=== PATIENT | male | born 1965 ===

== ENCOUNTER 2021-05-03 09:27 | Inpatient (IN) | payer OTHER ==
[~2021-05-03] VITALS: Ht 193 cm; Wt 121.0 kg
[2021-05-03] MEDS ORDERED: SODIUM CHLORIDE 0.9% 1,000 ML IV ONE (10:00)
[2021-05-03] MEDS: cefTRIAXone 1GM/50ML D5W 50 ML IV ONE ×2 (10:25→10:28)
[2021-05-03 11:02] LABS: Basophils # (auto) 0 10 ^3/uL (0-0.2); Basophils % (auto) 0.1 % (0.0-2.0); Eosinophils # (auto) 0 10 ^3/uL (0-0.8); Hematocrit 42.5 % (41.0-53.0); Hemoglobin 14.9 g/dL (13.5-17.5); Lymphocytes # (auto) 0.7 10 ^3/uL (0.4-5.4); Mean Corpuscular Hemoglobin 33.9 pg (28.0-32.0); Mean Corpuscular Hgb Conc. 35.2 g/dL (32.0-36.0); Mean Corpuscular Volume 96.4 fL (80.0-100.0); Monocytes # (auto) 0.9 10 ^3/uL (0-1.3); Monocytes % (auto) 7.8 % (0.0-12.0); Neutrophils # (auto) 10.3 10 ^3/uL (1.6-8.6); Neutrophils % (auto) 86.1 % (37.0-80.0); Nucleated Red Blood Cells % 0.1 %; Red Cell Distribution Width 12.9 % (11.8-14.3)
[2021-05-03 11:31] LABS: Albumin 2.9 g/dL (3.4-5.0); Calcium 8.5 mg/dL (8.5-10.1)
[2021-05-03 11:35] LABS: BUN/Creatinine Ratio 16.3; Bilirubin, Total 1.2 mg/dL (0.2-1.0); Total Protein 8.1 g/dL (6.4-8.2)
[2021-05-03 11:38] LABS: Potassium 2.9 mmol/L (3.5-5.1)
[2021-05-03] MEDS ORDERED: POTASSIUM EFFERVESENT TAB 25 MEQ PO ONE (12:15)
[2021-05-03 12:43] LABS: Urine WBC None Seen /hpf (0 - 3)
[2021-05-03 12:53] LABS: Urine Bacteria NONE SEEN /hpf (None Seen); Urine Blood 1+ /uL (Negative); Urine Hyaline Cast MANY /lpf (0 - 2); Urine Specific Gravity 1.021 (1.001-1.035)
[2021-05-03] MEDS ORDERED: ONDANSETRON HCL 4 MG/2 ML VIAL IV ONE (13:30)
[2021-05-03] MEDS ORDERED: MORPHINE SULFATE 4 MG/ML SYR/VIAL IV ONE (13:30)
[2021-05-03] MEDS ORDERED: IOHEXOL 350 MG/ML 100ML IJ ONE (13:43)
[2021-05-03] MEDS ORDERED: LABETALOL HCL 5 MG/ML 4ML SYRINGE IV ONE (13:45)
[2021-05-03] MEDS ORDERED: NITROGLYCERIN 0.4 MG SL TAB SL PRN (14:00)
[2021-05-03] MEDS ORDERED: SODIUM CHLORIDE 0.9% 1,000 ML IV SCH (14:00)
[2021-05-03] MEDS ORDERED: DOCUSATE SOD 100 MG CAP PO PRN (14:00)
[2021-05-03] MEDS ORDERED: HYDROcodone-ACET 5/325MG TAB PO PRN (14:00)
[2021-05-03] MEDS ORDERED: MORPHINE SULFATE INJECTION 2 MG/ML SYRG IV PRN (14:00)
[2021-05-03] MEDS ORDERED: VANCOMYCIN PER PHARMACY 0 MG IV SCH (14:00)
[2021-05-03] MEDS ORDERED: DEXTROSE (50%) 50ML SYRG IV ONE (14:15)
[2021-05-03] MEDS ORDERED: PIPERACILLIN-TAZOB 3.375GM 100 ML IV ONE (14:30)
[2021-05-03 14:50] LABS: Cholesterol 175 mg/dL (< 200); Triglycerides 206 mg/dL (< 150)
[2021-05-03 14:52] LABS: HDL Cholesterol 33 mg/dL (40-59); LDL Cholesterol 109 mg/dL (< 100)
[2021-05-03] MEDS: SODIUM CHLORIDE 0.9% 1,000 ML IV SCH (14:55)
[2021-05-03 16:00] VITALS: BP 161/106
[2021-05-03] MEDS: VANCOMYCIN 1GM/250ML 250 ML IV SCH (16:59)
[2021-05-03] MEDS ORDERED: InsuLIN REG 1unit/0.01ml Soln (100units/ml) SC ONE (17:00)
[2021-05-03] MEDS ORDERED: ACCU-CHEK COMFORT CURVE STRIP VI ONE (17:00)
[2021-05-03 17:20] VITALS: BP 154/103
[2021-05-03] MEDS: MORPHINE SULFATE INJECTION 2 MG/ML SYRG IV PRN (17:59)
[2021-05-03] MEDS: ONDANSETRON HCL 4 MG/2 ML VIAL IV PRN (17:59)
[2021-05-03 20:00] VITALS: BP 131/88
[2021-05-03] MEDS: cloNIDine HCL 0.1 MG TAB PO PRN (21:38)
[2021-05-03] MEDS: METOPROLOL TARTRATE 50 MG TAB PO SCH (21:38)
[2021-05-03 22:00] VITALS: BP 162/95
[2021-05-04] VITALS (7 sets, daily range): BP systolic 134–159; BP diastolic 88–99
[2021-05-04] MEDS: SODIUM CHLORIDE 0.9% 1,000 ML IV SCH ×3 (00:15→20:16)
[2021-05-04] MEDS: VANCOMYCIN 1GM/250ML 250 ML IV SCH ×2 (04:30→16:12)
[2021-05-04] MEDS: METOPROLOL TARTRATE 50 MG TAB PO SCH ×2 (08:57→22:18)
[2021-05-04 11:04] LABS: Basophils # (auto) 0 10 ^3/uL (0-0.2); Basophils % (auto) 0.2 % (0.0-2.0); Eosinophils # (auto) 0 10 ^3/uL (0-0.8); Eosinophils % (auto) 0.1 % (0.0-7.0); Hematocrit 39.5 % (41.0-53.0); Hemoglobin 13.6 g/dL (13.5-17.5); Lymphocytes % (auto) 9.2 % (10.0-50.0); Mean Corpuscular Hemoglobin 33.1 pg (28.0-32.0); Mean Corpuscular Hgb Conc. 34.4 g/dL (32.0-36.0); Mean Corpuscular Volume 96.2 fL (80.0-100.0); Monocytes # (auto) 1.4 10 ^3/uL (0-1.3); Monocytes % (auto) 12.2 % (0.0-12.0); Neutrophils # (auto) 8.9 10 ^3/uL (1.6-8.6); Neutrophils % (auto) 78.3 % (37.0-80.0); Nucleated Red Blood Cells % 0.1 %; Red Blood Cells 4.11 10^6/uL (4.5-5.90); Red Cell Distribution Width 13.2 % (11.8-14.3); White Blood Cell 11.4 10^3/uL (4.4-10.8)
[2021-05-04 11:11] LABS: Albumin 2.4 g/dL (3.4-5.0); Calcium 7.5 mg/dL (8.5-10.1); Potassium 3.4 mmol/L (3.5-5.1)
[2021-05-04 11:16] LABS: BUN/Creatinine Ratio 12.3; Bilirubin, Total 1.8 mg/dL (0.2-1.0); Total Protein 6.4 g/dL (6.4-8.2)
[2021-05-04] MEDS ORDERED: cefTRIAXone 1GM/50ML D5W 50 ML IV ONE (12:15)
[2021-05-04] MEDS: MORPHINE SULFATE INJECTION 2 MG/ML SYRG IV PRN (13:34)
[2021-05-04] MEDS: ONDANSETRON HCL 4 MG/2 ML VIAL IV PRN (13:34)
[2021-05-04] MEDS ORDERED: LEVOTHYROXINE SODIUM 100 MCG/5 ML INJ IV ONE (16:15)
[2021-05-04] MEDS: HYDROcodone-ACET 7.5/325MG TAB PO SCH (17:43)
[2021-05-04] MEDS: ATORVASTATIN 20 MG TAB PO SCH (22:02)
[2021-05-05] MEDS: HYDROcodone-ACET 7.5/325MG TAB PO SCH ×5 (01:15→23:46)
[2021-05-05] MEDS: VANCOMYCIN 1GM/250ML 250 ML IV SCH ×2 (04:00→16:30)
[2021-05-05 05:00] VITALS: BP 135/91
[2021-05-05] MEDS: LEVOTHYROXINE SODIUM 112 MCG TAB PO SCH (06:14)
[2021-05-05] MEDS: SODIUM CHLORIDE 0.9% 1,000 ML IV SCH ×3 (06:15→21:55)
[2021-05-05 06:53] LABS: Basophils # (auto) 0 10 ^3/uL (0-0.2); Basophils % (auto) 0.1 % (0.0-2.0); Eosinophils # (auto) 0 10 ^3/uL (0-0.8); Eosinophils % (auto) 0.3 % (0.0-7.0); Hematocrit 38.4 % (41.0-53.0); Hemoglobin 13.3 g/dL (13.5-17.5); Lymphocytes # (auto) 1.3 10 ^3/uL (0.4-5.4); Mean Corpuscular Hemoglobin 33.8 pg (28.0-32.0); Mean Corpuscular Hgb Conc. 34.7 g/dL (32.0-36.0); Mean Corpuscular Volume 97.4 fL (80.0-100.0); Monocytes % (auto) 9.2 % (0.0-12.0); Neutrophils # (auto) 8.2 10 ^3/uL (1.6-8.6); Neutrophils % (auto) 78.4 % (37.0-80.0); Red Blood Cells 3.94 10^6/uL (4.5-5.90); Red Cell Distribution Width 13.4 % (11.8-14.3); White Blood Cell 10.5 10^3/uL (4.4-10.8)
[2021-05-05 06:54] LABS: Potassium 3.6 mmol/L (3.5-5.1)
[2021-05-05 07:02] LABS: Albumin 2.3 g/dL (3.4-5.0); Bilirubin, Total 1.6 mg/dL (0.2-1.0); Calcium 7.5 mg/dL (8.5-10.1); Total Protein 6.2 g/dL (6.4-8.2)
[2021-05-05 09:00] VITALS: BP 125/86
[2021-05-05] MEDS: cefTRIAXone 1GM/50ML D5W 50 ML IV SCH (09:59)
[2021-05-05] MEDS: POTASSIUM EFFERVESENT TAB 25 MEQ PO SCH (09:59)
[2021-05-05] MEDS: METOPROLOL TARTRATE 50 MG TAB PO SCH ×2 (10:00→21:55)
[2021-05-05 13:00] VITALS: BP 145/87
[2021-05-05 17:00] VITALS: BP 144/83
[2021-05-05] MEDS: ATORVASTATIN 20 MG TAB PO SCH (21:48)
[2021-05-06] MEDS: VANCOMYCIN 1GM/250ML 250 ML IV SCH ×2 (04:44→17:26)
[2021-05-06] MEDS: HYDROcodone-ACET 7.5/325MG TAB PO SCH ×3 (05:40→17:27)
[2021-05-06] MEDS: LEVOTHYROXINE SODIUM 112 MCG TAB PO SCH (06:28)
[2021-05-06 08:00] VITALS: BP 136/78
[2021-05-06 08:30] VITALS: BP 136/78
[2021-05-06] MEDS: cefTRIAXone 1GM/50ML D5W 50 ML IV SCH (08:49)
[2021-05-06] MEDS: MORPHINE SULFATE INJECTION 2 MG/ML SYRG IV PRN (08:51)
[2021-05-06] MEDS: METOPROLOL TARTRATE 50 MG TAB PO SCH ×2 (10:24→21:54)
[2021-05-06] MEDS: POTASSIUM EFFERVESENT TAB 25 MEQ PO SCH (10:25)
[2021-05-06] MEDS: SODIUM CHLORIDE 0.9% 1,000 ML IV SCH ×2 (12:15→22:15)
[2021-05-06 13:30] VITALS: BP 149/94
[2021-05-06 15:30] VITALS: BP 141/91
[2021-05-06] MEDS: ATORVASTATIN 20 MG TAB PO SCH (21:53)
[2021-05-06 22:00] VITALS: BP 155/97
[2021-05-06] MEDS: LORazepam 0.5 MG TAB PO PRN (22:36)
[2021-05-07] MEDS: HYDROcodone-ACET 7.5/325MG TAB PO SCH ×4 (00:45→18:19)
[2021-05-07] MEDS: VANCOMYCIN 1GM/250ML 250 ML IV SCH ×2 (04:11→16:39)
[2021-05-07 05:20] VITALS: BP 144/94
[2021-05-07] MEDS: LEVOTHYROXINE SODIUM 112 MCG TAB PO SCH (06:31)
[2021-05-07] MEDS: SODIUM CHLORIDE 0.9% 1,000 ML IV SCH ×2 (06:34→21:44)
[2021-05-07 08:00] VITALS: BP 140/83
[2021-05-07 09:00] VITALS: BP 148/86
[2021-05-07 09:23] LABS: Basophils # (auto) 0 10 ^3/uL (0-0.2); Basophils % (auto) 0.2 % (0.0-2.0); Eosinophils # (auto) 0 10 ^3/uL (0-0.8); Eosinophils % (auto) 0.3 % (0.0-7.0); Hematocrit 40.4 % (41.0-53.0); Hemoglobin 13.8 g/dL (13.5-17.5); Lymphocytes # (auto) 1.4 10 ^3/uL (0.4-5.4); Mean Corpuscular Hemoglobin 32.9 pg (28.0-32.0); Mean Corpuscular Hgb Conc. 34.1 g/dL (32.0-36.0); Mean Corpuscular Volume 96.5 fL (80.0-100.0); Monocytes # (auto) 0.7 10 ^3/uL (0-1.3); Monocytes % (auto) 5.9 % (0.0-12.0); Neutrophils # (auto) 9.5 10 ^3/uL (1.6-8.6); Neutrophils % (auto) 81.6 % (37.0-80.0); Nucleated Red Blood Cells % 0.1 %; Red Blood Cells 4.19 10^6/uL (4.5-5.90); Red Cell Distribution Width 13.3 % (11.8-14.3); White Blood Cell 11.6 10^3/uL (4.4-10.8)
[2021-05-07 09:29] LABS: BUN/Creatinine Ratio 12.9; Potassium 3.5 mmol/L (3.5-5.1)
[2021-05-07] MEDS: POTASSIUM EFFERVESENT TAB 25 MEQ PO SCH (09:59)
[2021-05-07] MEDS: LORazepam 0.5 MG TAB PO PRN (09:59)
[2021-05-07] MEDS: cefTRIAXone 1GM/50ML D5W 50 ML IV SCH (09:59)
[2021-05-07] MEDS: METOPROLOL TARTRATE 50 MG TAB PO SCH ×2 (10:00→22:13)
[2021-05-07] MEDS: NEOMYCIN-BACITRACIN-POLYM UNITDOSE PKG TOP OINT TOP SCH (12:06)
[2021-05-07] MEDS ORDERED: hydrALAZINE HCL 25 MG TAB PO SCH (14:00)
[2021-05-07 16:30] VITALS: BP 140/89
[2021-05-07 22:00] VITALS: BP_SYST 142; BP_SYST 176; BP_DIAS 78; BP_DIAS 85
[2021-05-07] MEDS: ATORVASTATIN 20 MG TAB PO SCH (22:14)
[2021-05-08] MEDS: HYDROcodone-ACET 7.5/325MG TAB PO SCH ×4 (00:55→18:51)
[2021-05-08] MEDS: VANCOMYCIN 1GM/250ML 250 ML IV SCH ×2 (03:56→15:50)
[2021-05-08] MEDS: SODIUM CHLORIDE 0.9% 1,000 ML IV SCH ×2 (03:58→15:11)
[2021-05-08 05:00] VITALS: BP 140/93
[2021-05-08] MEDS: LEVOTHYROXINE SODIUM 112 MCG TAB PO SCH (06:16)
[2021-05-08 08:00] VITALS: BP 146/84
[2021-05-08] MEDS: cefTRIAXone 1GM/50ML D5W 50 ML IV SCH (09:27)
[2021-05-08] MEDS: POTASSIUM EFFERVESENT TAB 25 MEQ PO SCH (09:27)
[2021-05-08] MEDS: METOPROLOL TARTRATE 50 MG TAB PO SCH ×2 (09:27→22:00)
[2021-05-08] MEDS: NEOMYCIN-BACITRACIN-POLYM UNITDOSE PKG TOP OINT TOP SCH (09:29)
[2021-05-08 12:00] VITALS: BP 153/95
[2021-05-08] MEDS ORDERED: ENOXAPARIN SOD 40 MG/0.4 ML SYRINGE SC ONE (12:00)
[2021-05-08] MEDS ORDERED: CLINDAMYCIN 600MG IV 50 ML IV ONE (16:15)
[2021-05-08 16:24] VITALS: BP 166/96
[2021-05-08] MEDS: PENICILLIN G POTASSIUM 3,000,000 UNITS in D5W 5% 50 ML IV SCH ×2 (18:51→21:48)
[2021-05-08] MEDS: ATORVASTATIN 20 MG TAB PO SCH (21:48)
[2021-05-08 22:00] VITALS: BP 164/96
[2021-05-09] MEDS: SODIUM CHLORIDE 0.9% 1,000 ML IV SCH ×3 (00:18→23:39)
[2021-05-09] MEDS: HYDROcodone-ACET 7.5/325MG TAB PO SCH ×5 (00:18→23:39)
[2021-05-09] MEDS: CLINDAMYCIN 600MG IV 50 ML IV SCH ×3 (02:07→17:39)
[2021-05-09] MEDS: PENICILLIN G POTASSIUM 3,000,000 UNITS in D5W 5% 50 ML IV SCH ×6 (03:18→21:10)
[2021-05-09 05:00] VITALS: BP 158/101
[2021-05-09] MEDS: LEVOTHYROXINE SODIUM 112 MCG TAB PO SCH (06:35)
[2021-05-09 08:28] VITALS: BP 148/93
[2021-05-09] MEDS: POTASSIUM EFFERVESENT TAB 25 MEQ PO SCH (09:06)
[2021-05-09] MEDS: METOPROLOL TARTRATE 50 MG TAB PO SCH ×2 (09:07→21:11)
[2021-05-09] MEDS: ENOXAPARIN SOD 40 MG/0.4 ML SYRINGE SC SCH (09:09)
[2021-05-09] MEDS: NEOMYCIN-BACITRACIN-POLYM UNITDOSE PKG TOP OINT TOP SCH (09:09)
[2021-05-09] MEDS: cloNIDine HCL 0.1 MG TAB PO PRN (10:35)
[2021-05-09 12:30] VITALS: BP 154/103
[2021-05-09 17:12] VITALS: BP 140/78
[2021-05-09] MEDS: ATORVASTATIN 20 MG TAB PO SCH (21:11)
[2021-05-09 22:14] VITALS: BP 156/87
[2021-05-10] MEDS: PENICILLIN G POTASSIUM 3,000,000 UNITS in D5W 5% 50 ML IV SCH ×6 (02:29→20:05)
[2021-05-10] MEDS: CLINDAMYCIN 600MG IV 50 ML IV SCH ×3 (02:29→18:34)
[2021-05-10 05:24] VITALS: BP 151/104
[2021-05-10 06:06] LABS: RPR Non Reactive (Non Reactive)
[2021-05-10] MEDS: LEVOTHYROXINE SODIUM 112 MCG TAB PO SCH (06:10)
[2021-05-10] MEDS: HYDROcodone-ACET 7.5/325MG TAB PO SCH ×4 (06:10→23:59)
[2021-05-10] MEDS: SODIUM CHLORIDE 0.9% 1,000 ML IV SCH ×2 (06:15→16:25)
[2021-05-10 08:31] VITALS: BP 139/86
[2021-05-10] MEDS: POTASSIUM EFFERVESENT TAB 25 MEQ PO SCH (09:45)
[2021-05-10] MEDS: NEOMYCIN-BACITRACIN-POLYM UNITDOSE PKG TOP OINT TOP SCH (09:45)
[2021-05-10] MEDS: ENOXAPARIN SOD 40 MG/0.4 ML SYRINGE SC SCH (09:45)
[2021-05-10] MEDS: METOPROLOL TARTRATE 50 MG TAB PO SCH ×2 (09:46→22:26)
[2021-05-10 12:55] VITALS: BP 141/87
[2021-05-10 17:09] VITALS: BP 133/86
[2021-05-10 20:00] VITALS: BP 130/80
[2021-05-10 22:00] VITALS: BP 130/80
[2021-05-10] MEDS: ATORVASTATIN 20 MG TAB PO SCH (22:26)
[2021-05-11] MEDS: CLINDAMYCIN 600MG IV 50 ML IV SCH ×3 (02:01→17:41)
[2021-05-11] MEDS: SODIUM CHLORIDE 0.9% 1,000 ML IV SCH ×2 (02:15→09:04)
[2021-05-11] MEDS: PENICILLIN G POTASSIUM 3,000,000 UNITS in D5W 5% 50 ML IV SCH ×7 (04:07→21:11)
[2021-05-11 05:00] VITALS: BP 132/93
[2021-05-11] MEDS: HYDROcodone-ACET 7.5/325MG TAB PO SCH ×3 (06:10→17:41)
[2021-05-11] MEDS: LEVOTHYROXINE SODIUM 112 MCG TAB PO SCH (06:31)
[2021-05-11 09:00] VITALS: BP 140/85
[2021-05-11] MEDS: POTASSIUM EFFERVESENT TAB 25 MEQ PO SCH (09:02)
[2021-05-11] MEDS: NEOMYCIN-BACITRACIN-POLYM UNITDOSE PKG TOP OINT TOP SCH (09:03)
[2021-05-11] MEDS: ENOXAPARIN SOD 40 MG/0.4 ML SYRINGE SC SCH (09:03)
[2021-05-11] MEDS: METOPROLOL TARTRATE 50 MG TAB PO SCH ×2 (09:03→21:13)
[2021-05-11 13:00] VITALS: BP 134/79
[2021-05-11] MEDS: MORPHINE SULFATE INJECTION 2 MG/ML SYRG IV PRN (16:01)
[2021-05-11 17:00] VITALS: BP 153/97
[2021-05-11] MEDS: ATORVASTATIN 20 MG TAB PO SCH (21:12)
[2021-05-11 21:26] VITALS: BP 153/97
[2021-05-12] MEDS: HYDROcodone-ACET 7.5/325MG TAB PO SCH ×4 (00:15→18:00)
[2021-05-12] MEDS: PENICILLIN G POTASSIUM 3,000,000 UNITS in D5W 5% 50 ML IV SCH ×5 (00:16→15:44)
[2021-05-12] MEDS: SODIUM CHLORIDE 0.9% 1,000 ML IV SCH ×2 (00:16→08:15)
[2021-05-12] MEDS: CLINDAMYCIN 600MG IV 50 ML IV SCH ×2 (01:36→10:03)
[2021-05-12] MEDS: FUROSEMIDE INJECTION 100 MG in D5W 5% 100 ML IV SCH ×3 (02:19→23:30)
[2021-05-12 05:00] VITALS: BP 142/85
[2021-05-12] MEDS: LEVOTHYROXINE SODIUM 112 MCG TAB PO SCH (06:17)
[2021-05-12 09:00] VITALS: BP 138/84
[2021-05-12] MEDS: NEOMYCIN-BACITRACIN-POLYM UNITDOSE PKG TOP OINT TOP SCH (10:04)
[2021-05-12] MEDS: ENOXAPARIN SOD 40 MG/0.4 ML SYRINGE SC SCH (10:04)
[2021-05-12] MEDS: METOPROLOL TARTRATE 50 MG TAB PO SCH ×2 (10:04→22:00)
[2021-05-12] MEDS: POTASSIUM EFFERVESENT TAB 25 MEQ PO SCH (10:04)
[2021-05-12 12:55] LABS: Hepatitis A Ab IgM Negative
[2021-05-12 13:00] VITALS: BP 140/96
[2021-05-12 13:30] LABS: Hepatitis B Core IgM Negative
[2021-05-12] MEDS: DOPamine 1600MCG/ML D5W 250 ML IV SCH (13:30)
[2021-05-12 13:48] LABS: Hepatitis C Antibody Negative (Negative)
[2021-05-12] MEDS ORDERED: NITROGLYCERIN 0.4 MG SL TAB SL PRN (14:00)
[2021-05-12] MEDS ORDERED: MORPHINE SULFATE INJECTION 2 MG/ML SYRG IV PRN (14:00)
[2021-05-12] MEDS: SODIUM CHLOR 0.9% PF (SALINE LOCK) 10ML VIAL/SYR IV SCH ×2 (15:44→22:00)
[2021-05-12 17:00] VITALS: BP 145/90
[2021-05-12] MEDS ORDERED: predniSONE 20 MG TAB PO ONE (17:15)
[2021-05-12] MEDS: PENICILLIN V POTASSIUM 250 MG TAB PO SCH (18:00)
[2021-05-12 22:00] VITALS: BP 138/86
[2021-05-12] MEDS: CLINDAMYCIN HCL 150 MG CAP PO SCH (22:00)
[2021-05-12] MEDS: ATORVASTATIN 20 MG TAB PO SCH (22:00)
[2021-05-13] VITALS (8 sets, daily range): BP systolic 110–136; BP diastolic 70–83
[2021-05-13] MEDS: HYDROcodone-ACET 7.5/325MG TAB PO SCH ×5 (00:29→23:45)
[2021-05-13] MEDS: PENICILLIN V POTASSIUM 250 MG TAB PO SCH ×5 (00:29→23:45)
[2021-05-13] MEDS: FUROSEMIDE INJECTION 100 MG in D5W 5% 100 ML IV SCH ×3 (02:20→23:53)
[2021-05-13] MEDS: SODIUM CHLOR 0.9% PF (SALINE LOCK) 10ML VIAL/SYR IV SCH ×3 (06:13→22:08)
[2021-05-13] MEDS: CLINDAMYCIN HCL 150 MG CAP PO SCH ×3 (06:13→22:08)
[2021-05-13] MEDS: LEVOTHYROXINE SODIUM 112 MCG TAB PO SCH (06:14)
[2021-05-13] MEDS: POTASSIUM EFFERVESENT TAB 25 MEQ PO SCH (10:05)
[2021-05-13] MEDS: NEOMYCIN-BACITRACIN-POLYM UNITDOSE PKG TOP OINT TOP SCH (10:05)
[2021-05-13] MEDS: ENOXAPARIN SOD 40 MG/0.4 ML SYRINGE SC SCH (10:05)
[2021-05-13] MEDS: predniSONE 20 MG TAB PO SCH (10:05)
[2021-05-13] MEDS: METOPROLOL TARTRATE 50 MG TAB PO SCH ×2 (10:05→22:08)
[2021-05-13] MEDS: DOPamine 1600MCG/ML D5W 250 ML IV SCH (14:40)
[2021-05-13] MEDS: ATORVASTATIN 20 MG TAB PO SCH (22:08)
[2021-05-14 05:00] VITALS: BP 115/84
[2021-05-14] MEDS: CLINDAMYCIN HCL 150 MG CAP PO SCH ×3 (06:06→21:39)
[2021-05-14] MEDS: SODIUM CHLOR 0.9% PF (SALINE LOCK) 10ML VIAL/SYR IV SCH ×3 (06:06→21:39)
[2021-05-14] MEDS: PENICILLIN V POTASSIUM 250 MG TAB PO SCH ×4 (06:07→23:56)
[2021-05-14] MEDS: HYDROcodone-ACET 7.5/325MG TAB PO SCH ×4 (06:07→23:56)
[2021-05-14] MEDS: LEVOTHYROXINE SODIUM 112 MCG TAB PO SCH (06:07)
[2021-05-14 09:00] VITALS: BP 115/71
[2021-05-14] MEDS: predniSONE 20 MG TAB PO SCH (10:30)
[2021-05-14] MEDS: POTASSIUM EFFERVESENT TAB 25 MEQ PO SCH (10:30)
[2021-05-14] MEDS: ENOXAPARIN SOD 40 MG/0.4 ML SYRINGE SC SCH (10:31)
[2021-05-14] MEDS: NEOMYCIN-BACITRACIN-POLYM UNITDOSE PKG TOP OINT TOP SCH (10:31)
[2021-05-14] MEDS: METOPROLOL TARTRATE 50 MG TAB PO SCH ×2 (10:31→21:40)
[2021-05-14 13:00] VITALS: BP 114/90
[2021-05-14] MEDS: FUROSEMIDE INJECTION 100 MG in D5W 5% 100 ML IV SCH (13:42)
[2021-05-14] MEDS ORDERED: metOLazone 5 MG TAB PO ONE (14:15)
[2021-05-14 15:21] LABS: Basophils # (auto) 0 10 ^3/uL (0-0.2); Basophils % (auto) 0.2 % (0.0-2.0); Eosinophils # (auto) 0 10 ^3/uL (0-0.8); Eosinophils % (auto) 0.1 % (0.0-7.0); Hematocrit 43.9 % (41.0-53.0); Hemoglobin 14.7 g/dL (13.5-17.5); Lymphocytes # (auto) 0.7 10 ^3/uL (0.4-5.4); Lymphocytes % (auto) 10.3 % (10.0-50.0); Mean Corpuscular Hemoglobin 32.3 pg (28.0-32.0); Mean Corpuscular Hgb Conc. 33.5 g/dL (32.0-36.0); Mean Corpuscular Volume 96.4 fL (80.0-100.0); Monocytes # (auto) 0.4 10 ^3/uL (0-1.3); Monocytes % (auto) 5.7 % (0.0-12.0); Neutrophils # (auto) 5.8 10 ^3/uL (1.6-8.6); Neutrophils % (auto) 83.7 % (37.0-80.0); Red Blood Cells 4.55 10^6/uL (4.5-5.90); Red Cell Distribution Width 13.7 % (11.8-14.3); White Blood Cell 6.9 10^3/uL (4.4-10.8)
[2021-05-14 15:28] LABS: Albumin 2.7 g/dL (3.4-5.0); Calcium 9.1 mg/dL (8.5-10.1); Potassium 3.7 mmol/L (3.5-5.1)
[2021-05-14 15:31] LABS: BUN/Creatinine Ratio 27.6; Total Protein 8.7 g/dL (6.4-8.2)
[2021-05-14 17:00] VITALS: BP 114/79
[2021-05-14 21:32] VITALS: BP 122/87
[2021-05-14] MEDS: ATORVASTATIN 20 MG TAB PO SCH (21:39)
[2021-05-15] MEDS: SODIUM CHLOR 0.9% PF (SALINE LOCK) 10ML VIAL/SYR IV SCH ×3 (05:19→22:11)
[2021-05-15] MEDS: CLINDAMYCIN HCL 150 MG CAP PO SCH ×3 (05:22→22:11)
[2021-05-15] MEDS: PENICILLIN V POTASSIUM 250 MG TAB PO SCH ×3 (05:23→18:22)
[2021-05-15] MEDS: LEVOTHYROXINE SODIUM 112 MCG TAB PO SCH (05:23)
[2021-05-15] MEDS: HYDROcodone-ACET 7.5/325MG TAB PO SCH ×3 (05:23→18:00)
[2021-05-15 05:58] VITALS: BP 121/88
[2021-05-15 07:26] LABS: BUN/Creatinine Ratio 28.9; Calcium 8.6 mg/dL (8.5-10.1)
[2021-05-15 09:00] VITALS: BP 126/80
[2021-05-15] MEDS: ENOXAPARIN SOD 40 MG/0.4 ML SYRINGE SC SCH (10:16)
[2021-05-15] MEDS: predniSONE 20 MG TAB PO SCH (10:16)
[2021-05-15] MEDS: METOPROLOL TARTRATE 50 MG TAB PO SCH ×2 (10:16→22:12)
[2021-05-15] MEDS: NEOMYCIN-BACITRACIN-POLYM UNITDOSE PKG TOP OINT TOP SCH (10:16)
[2021-05-15] MEDS ORDERED: POTASSIUM EFFERVESENT TAB 25 MEQ PO ONE (11:15)
[2021-05-15 13:00] VITALS: BP 134/91
[2021-05-15 17:00] VITALS: BP 151/99
[2021-05-15 22:00] VITALS: BP 145/97
[2021-05-15] MEDS: ATORVASTATIN 20 MG TAB PO SCH (22:11)
[2021-05-16] MEDS: PENICILLIN V POTASSIUM 250 MG TAB PO SCH ×4 (00:25→17:43)
[2021-05-16 05:00] VITALS: BP 138/88
[2021-05-16] MEDS: SODIUM CHLOR 0.9% PF (SALINE LOCK) 10ML VIAL/SYR IV SCH ×3 (05:58→21:13)
[2021-05-16] MEDS: HYDROcodone-ACET 7.5/325MG TAB PO SCH ×5 (06:00→17:56)
[2021-05-16] MEDS: CLINDAMYCIN HCL 150 MG CAP PO SCH (06:09)
[2021-05-16] MEDS: LEVOTHYROXINE SODIUM 112 MCG TAB PO SCH (06:09)
[2021-05-16 09:00] VITALS: BP 134/88
[2021-05-16] MEDS ORDERED: POTASSIUM EFFERVESENT TAB 25 MEQ GT SCH (10:00)
[2021-05-16] MEDS ORDERED: LEV112T PO (10:09)
[2021-05-16] MEDS ORDERED: PEN250T PO (10:09)
[2021-05-16] MEDS ORDERED: ATE50T PO (10:13)
[2021-05-16] MEDS ORDERED: HYDR25TA5 PO (10:13)
[2021-05-16] MEDS ORDERED: ATOR10TA52 PO (10:13)
[2021-05-16] MEDS: METOPROLOL TARTRATE 50 MG TAB PO SCH ×2 (10:28→21:13)
[2021-05-16] MEDS: NEOMYCIN-BACITRACIN-POLYM UNITDOSE PKG TOP OINT TOP SCH (10:28)
[2021-05-16] MEDS: ENOXAPARIN SOD 40 MG/0.4 ML SYRINGE SC SCH (10:29)
[2021-05-16] MEDS: BUMETANIDE 1 MG TAB PO SCH (10:29)
[2021-05-16] MEDS ORDERED: POTASSIUM EFFERVESENT TAB 25 MEQ PO SCH (10:30)
[2021-05-16 10:59] LABS: BUN/Creatinine Ratio 29.9
[2021-05-16 11:19] LABS: Potassium 2.9 mmol/L (3.5-5.1)
[2021-05-16 17:00] VITALS: BP 137/87
[2021-05-16] MEDS: ATORVASTATIN 20 MG TAB PO SCH (21:13)
[2021-05-16] MEDS: ACETAMINOPHEN 325 MG TAB PO PRN (21:20)
[2021-05-16 22:00] VITALS: BP 139/83
[2021-05-17 05:00] VITALS: BP 128/82
[2021-05-17] MEDS: HYDROcodone-ACET 7.5/325MG TAB PO SCH ×4 (06:00→17:27)
[2021-05-17] MEDS: SODIUM CHLOR 0.9% PF (SALINE LOCK) 10ML VIAL/SYR IV SCH ×3 (06:45→21:43)
[2021-05-17] MEDS: LEVOTHYROXINE SODIUM 112 MCG TAB PO SCH (06:46)
[2021-05-17] MEDS: PENICILLIN V POTASSIUM 250 MG TAB PO SCH ×4 (06:49→17:27)
[2021-05-17 07:57] VITALS: BP 128/95
[2021-05-17] MEDS: METOPROLOL TARTRATE 50 MG TAB PO SCH ×2 (09:48→21:43)
[2021-05-17] MEDS: BUMETANIDE 1 MG TAB PO SCH (09:49)
[2021-05-17] MEDS: POTASSIUM EFFERVESENT TAB 25 MEQ PO SCH ×2 (09:50→21:42)
[2021-05-17] MEDS: ENOXAPARIN SOD 40 MG/0.4 ML SYRINGE SC SCH (09:51)
[2021-05-17] MEDS: NEOMYCIN-BACITRACIN-POLYM UNITDOSE PKG TOP OINT TOP SCH (11:16)
[2021-05-17 11:29] LABS: Potassium 3.1 mmol/L (3.5-5.1)
[2021-05-17 11:34] LABS: Magnesium 2.6 mg/dL (1.6-2.6)
[2021-05-17 11:35] LABS: Phosphorus 3.7 mg/dL (2.5-4.90)
[2021-05-17] MEDS ORDERED: POTASSIUM CHL 20 Meq TABLET PO ONE (14:30)
[2021-05-17 17:23] VITALS: BP 134/79
[2021-05-17] MEDS: ACETAMINOPHEN 325 MG TAB PO PRN (17:31)
[2021-05-17] MEDS: ATORVASTATIN 20 MG TAB PO SCH (21:42)
[2021-05-17 22:00] VITALS: BP 139/86
[2021-05-18] MEDS: ACETAMINOPHEN 325 MG TAB PO PRN ×4 (00:28→21:31)
[2021-05-18] MEDS: PENICILLIN V POTASSIUM 250 MG TAB PO SCH ×4 (00:28→18:07)
[2021-05-18 05:00] VITALS: BP 132/81
[2021-05-18] MEDS: HYDROcodone-ACET 7.5/325MG TAB PO SCH ×4 (06:00→17:46)
[2021-05-18] MEDS: SODIUM CHLOR 0.9% PF (SALINE LOCK) 10ML VIAL/SYR IV SCH ×3 (06:06→22:00)
[2021-05-18] MEDS: LEVOTHYROXINE SODIUM 112 MCG TAB PO SCH ×2 (06:08→09:10)
[2021-05-18 07:48] LABS: Potassium 3.3 mmol/L (3.5-5.1)
[2021-05-18 08:00] VITALS: BP 139/104
[2021-05-18 08:04] LABS: BUN/Creatinine Ratio 26.7; Calcium 8.8 mg/dL (8.5-10.1)
[2021-05-18] MEDS: POTASSIUM EFFERVESENT TAB 25 MEQ PO SCH ×2 (09:08→21:31)
[2021-05-18] MEDS: METOPROLOL TARTRATE 50 MG TAB PO SCH ×2 (09:09→21:30)
[2021-05-18] MEDS: BUMETANIDE 1 MG TAB PO SCH (09:09)
[2021-05-18] MEDS: ENOXAPARIN SOD 40 MG/0.4 ML SYRINGE SC SCH (09:10)
[2021-05-18] MEDS: NEOMYCIN-BACITRACIN-POLYM UNITDOSE PKG TOP OINT TOP SCH (09:11)
[2021-05-18] MEDS ORDERED: POTASSIUM CHL 20 Meq TABLET PO ONE (09:30)
[2021-05-18 11:02] VITALS: BP 123/84
[2021-05-18] MEDS: FAMOTIDINE 20 MG TAB PO SCH (11:04)
[2021-05-18] MEDS: ATORVASTATIN 20 MG TAB PO SCH (21:30)
[2021-05-18 22:00] VITALS: BP 127/78
[2021-05-19 05:00] VITALS: BP 127/78
[2021-05-19] MEDS: HYDROcodone-ACET 7.5/325MG TAB PO SCH ×5 (06:00→23:28)
[2021-05-19] MEDS: SODIUM CHLOR 0.9% PF (SALINE LOCK) 10ML VIAL/SYR IV SCH ×3 (06:00→22:12)
[2021-05-19] MEDS: PENICILLIN V POTASSIUM 250 MG TAB PO SCH ×5 (06:36→23:29)
[2021-05-19 07:26] LABS: Potassium 3.6 mmol/L (3.5-5.1)
[2021-05-19 07:42] LABS: Calcium 8.7 mg/dL (8.5-10.1)
[2021-05-19 09:00] VITALS: BP 119/89
[2021-05-19] MEDS: FAMOTIDINE 20 MG TAB PO SCH (10:47)
[2021-05-19] MEDS: POTASSIUM EFFERVESENT TAB 25 MEQ PO SCH ×2 (10:48→22:12)
[2021-05-19] MEDS: BUMETANIDE 1 MG TAB PO SCH (10:48)
[2021-05-19] MEDS: METOPROLOL TARTRATE 50 MG TAB PO SCH ×2 (10:49→22:12)
[2021-05-19] MEDS: ACETAMINOPHEN 325 MG TAB PO PRN ×3 (10:49→18:06)
[2021-05-19] MEDS: LEVOTHYROXINE SODIUM 112 MCG TAB PO SCH (10:49)
[2021-05-19] MEDS: ENOXAPARIN SOD 40 MG/0.4 ML SYRINGE SC SCH (10:50)
[2021-05-19] MEDS: NEOMYCIN-BACITRACIN-POLYM UNITDOSE PKG TOP OINT TOP SCH (10:50)
[2021-05-19 13:00] VITALS: BP 117/93
[2021-05-19 17:00] VITALS: BP 118/79
[2021-05-19] MEDS: ATORVASTATIN 20 MG TAB PO SCH (22:12)
[2021-05-20 05:00] VITALS: BP 122/80
[2021-05-20] MEDS: HYDROcodone-ACET 7.5/325MG TAB PO SCH ×3 (06:00→18:00)
[2021-05-20] MEDS: SODIUM CHLOR 0.9% PF (SALINE LOCK) 10ML VIAL/SYR IV SCH ×2 (06:19→14:00)
[2021-05-20] MEDS: PENICILLIN V POTASSIUM 250 MG TAB PO SCH ×3 (06:20→18:28)
[2021-05-20 09:00] VITALS: BP 126/75
[2021-05-20] MEDS: ACETAMINOPHEN 325 MG TAB PO PRN ×2 (10:14→18:31)
[2021-05-20] MEDS: BUMETANIDE 1 MG TAB PO SCH (10:15)
[2021-05-20] MEDS: FAMOTIDINE 20 MG TAB PO SCH (10:15)
[2021-05-20] MEDS: LEVOTHYROXINE SODIUM 112 MCG TAB PO SCH (10:15)
[2021-05-20] MEDS: POTASSIUM EFFERVESENT TAB 25 MEQ PO SCH (10:16)
[2021-05-20] MEDS: METOPROLOL TARTRATE 50 MG TAB PO SCH (10:16)
[2021-05-20] MEDS: NEOMYCIN-BACITRACIN-POLYM UNITDOSE PKG TOP OINT TOP SCH (10:17)
[2021-05-20] MEDS: ENOXAPARIN SOD 40 MG/0.4 ML SYRINGE SC SCH (10:17)
[2021-05-20 13:00] VITALS: BP 109/72
[2021-05-20 17:00] VITALS: BP 128/83
== END 2021-05-20 20:55 | disposition home health service (06) | DRG 872 ==
LOC: EDBD 09:27 → ER 09:27 → WEST WING 13:53 → ER 15:16 → TELE-WESTW 05-12 14:50 → WEST WING 05-15 12:02
PROVIDERS: ADMIT Family Medicine; ATTEND Family Medicine
DX: A41.9 Sepsis, unspecified organism (principal); E44.1 Mild protein-calorie malnutrition; L03.116 Cellulitis of left lower limb; N17.9 Acute kidney failure, unspecified; R64 Cachexia; E87.6 Hypokalemia; E11.65 Type 2 diabetes mellitus with hyperglycemia; I10 Essential (primary) hypertension; E04.9 Nontoxic goiter, unspecified; Z20.822 Contact with and (suspected) exposure to COVID-19; E03.9 Hypothyroidism, unspecified; E78.5 Hyperlipidemia, unspecified; E66.01 Morbid (severe) obesity due to excess calories; E78.00 Pure hypercholesterolemia, unspecified; E80.6 Other disorders of bilirubin metabolism; R74.01 Elevation of levels of liver transaminase levels; E11.21 Type 2 diabetes mellitus with diabetic nephropathy; Z68.32 Body mass index [BMI] 32.0-32.9, adult
CPT/HCPCS: 36415; 71275; 73590; 73700; 73718; 80048; 80053; 80061; 80074; 80202; 81001; 82565; 82962; 83036; 83605; 83735; 84100; 84112; 84132; 84443; 85025; 85379; 85652; 86141; 86592; 86703; 87040; 87205; 87426; 93926; 93971; 96365; 96375; 97110; 97116; 97163; 97530; G0378; J0696; J2405; J3490; J7060